=== PATIENT | male | born 1940 | race Caucasian/White ===

== ENCOUNTER 2020-09-03 13:00 | Outpatient (RCR) | payer MEDICAID, SELFPAY | END 2020-11-04 23:59 | disposition home or self-care (01) | LOC: ANHAUDASC 13:00 | DX: Z46.1 Encounter for fitting and adjustment of hearing aid (principal) | CPT/HCPCS: 99199; V5240; V5261 ==

== ENCOUNTER 2021-02-14 13:00 | Outpatient (RCR) | payer MEDICARE, MEDICAID, SELFPAY | END 2021-04-28 23:59 | disposition home or self-care (01) | LOC: ANHAUDASC 13:00 | DX: Z46.1 Encounter for fitting and adjustment of hearing aid (principal) | CPT/HCPCS: 99199 ==

== ENCOUNTER 2021-07-04 13:00 | Outpatient (RCR) | payer MEDICARE, MEDICAID, SELFPAY | END 2021-08-25 23:59 | disposition home or self-care (01) | LOC: ANHAUDASC 13:00 | DX: Z46.1 Encounter for fitting and adjustment of hearing aid (principal) | CPT/HCPCS: 99199; V5264 ==